=== PATIENT | male | born 1955 ===

== ENCOUNTER 2016-11-28 08:54 | Emergency (ER) | payer MEDICARE, OTHER ==
[2016-11-28 09:13] VITALS: RESP 16; TEMP 98.4
[2016-11-28] MEDS ORDERED: Apap-Butalbital-Caffeine 325-50-40mg Tab PO STA (10:01)
--- NOTE | 2016-11-28 10:03 | ED PDOC ---
Arrival/HPI - General Chief Complaint: ENT Problem Time Seen by Provider: 11/28/16 09:22 Historian: Patient - History of Present Illness Narrative History of Present Illness (Text): 11/28/16 09:40 This 61 yo male is brought to this ED c/o sore throat and KHAN x 2 weeks. Patient denies fever, sob, cp, wheezing, abdominal pain, urinary symptoms, neck pain, neck stiffness, diplopia, dysarthria, dizziness, rash, recent travel, or sick contact. Time/Duration: Other (2 weeks) Context: Home Past Medical History - Provider Review Nursing Documentation Reviewed: Yes - HEENT Hx Glaucoma: Yes - Psychiatric Hx Substance Use: No Family/Social History - Physician Review Nursing Documentation Reviewed: Yes Family/Social History: No Known Family HX Smoking Status: Unknown If Ever Smoked Hx Alcohol Use: Yes Frequency of alcohol use: Socially Hx Substance Use: No Allergies/Home Meds Allergies/Adverse Reactions: Allergies No Known Allergies Allergy (Verified 11/28/16 09:13) Review of Systems - Review of Systems Constitutional: Normal. absent: Fatigue, Weight Change, Fevers, Night Sweats Eyes: Normal. absent: Vision Changes, Photophobia, Eye Pain ENT: Sore Throat. absent: Hearing Changes, Tinnitus, TMJ Pain, Voice Changes, Rhinorrhea, Epistaxis, Sinus Congestion Respiratory: Normal. absent: SOB, Cough, Wheezing Cardiovascular: Normal. absent: Chest Pain, Palpitations Gastrointestinal: Normal. absent: Abdominal Pain, Nausea, Vomiting Genitourinary Male: Normal. absent: Dysuria, Frequency, Hematuria Musculoskeletal: Normal. absent: Back Pain, Neck Pain, Joint Swelling, Myalgias Skin: Normal. absent: Rash Neurological: Headache. absent: Dizziness, Focal Weakness, Gait Changes, Speech Changes, Facial Droop Endocrine: Normal Hemo/Lymphatic: Normal Psychiatric: Normal Physical Exam Vital Signs Temp Pulse Resp BP Pulse Ox 11/28/16 09:10 98.4 F 78 16 136/86 98 Temperature: Afebrile Blood Pressure: Normal Pulse: Regular Respiratory Rate: Normal Appearance: Positive for: Well-Appearing, Non-Toxic, Comfortable Pain Distress: None Mental Status: Positive for: Alert and Oriented X 3 - Systems Exam Head: Present: Atraumatic, Normocephalic Pupils: Present: PERRL Extroacular Muscles: Present: EOMI Conjunctiva: Present: Normal Mouth: Present: Moist Mucous Membranes Pharnyx: Present: ERYTHEMA. No: EXUDATE, TONSILS ENLARGED, Peritonsilar Swelling, Uvular Deviation, Muffled/Hoarse Voice, Strider, Soft Palate/Uvular Edema Nose (External): Present: Atraumatic Nose (Internal): Present: Normal Inspection Neck: Present: Normal Range of Motion, Trachea Midline. No: Meningeal Signs, MIDLINE TENDERNESS, Paraspinal Tenderness, Lymphadenopathy Respiratory/Chest: Present: Clear to Auscultation, Good Air Exchange. No: Respiratory Distress, Accessory Muscle Use, Wheezes, Retracting, Rhonchi Cardiovascular: Present: Regular Rate and Rhythm, Normal S1, S2. No: Murmurs Abdomen: Present: Normal Bowel Sounds. No: Tenderness, Distention, Peritoneal Signs, Rebound, Guarding Back: Present: Normal Inspection. No: CVA Tenderness Upper Extremity: Present: Normal Inspection, Normal ROM, NORMAL PULSES, Neurovascularly Intact, Capillary Refill < 2s. No: Cyanosis, Edema Lower Extremity: Present: Normal Inspection. No: Edema Neurological: Present: GCS=15, CN II-XII Intact, Speech Normal, Motor Func Grossly Intact, Normal Sensory Function, Normal Cerebellar Funct, Gait Normal Skin: Present: Warm, Dry, Normal Color. No: Rashes Psychiatric: Present: Alert, Oriented x 3 Medical Decision Making ED Course and Treatment: 11/28/16 10:34 Patient came c/o KHAN, and sore throat x 2 weeks. Patient denies fever, diplopia , dysarthia, dizziness, sick contact, or recent travel. Denies sob, or cp. Physical exam was unremarkable except for mild pharyngitis. Patient has not neuro focal deficits. Lungs CTA b/l. No scalp or facial rash. Patient KHAN was treated with Fioricet and Motrin with improvement of symptoms. Patient requested ABX, and PMD referral. Re-evaluation Time: 10:36 Reassessment Condition: Re-examined, Improved - Medication Orders Current Medication Orders: Discontinued Medications Acetaminophen/Butalbital/Caffeine (Fioricet) 1 tab PO STAT STA Stop: 11/28/16 10:02 Last Admin: 11/28/16 10:12 Dose: 1 tab Ibuprofen (Motrin Tab) 400 mg PO STAT STA Stop: 11/28/16 10:03 Last Admin: 11/28/16 10:13 Dose: 400 mg Disposition/Present on Arrival - Present on Arrival Any Indicators Present on Arrival: No History of DVT/PE: No History of Uncontrolled Diabetes: No Urinary Catheter: No History of Decub. Ulcer: No History Surgical Site Infection Following: None - Disposition Have Diagnosis and Disposition been Completed?: Yes Diagnosis: Pharyngitis, Headache Disposition: HOME/ ROUTINE Disposition Time: 10:38 Patient Plan: Discharge Patient Problems: Current Active Problems Problem Status Onset Headache Acute Pharyngitis Acute Condition: GOOD Discharge Instructions (ExitCare): General Headache (ED), Pharyngitis (ED) Additional Instructions: Call private doctor for follow up visit in 1-2 days. Take medication as instructed. Return to emergency if symptoms worsen. Prescriptions: Amoxicillin [Amoxil 500 mg Cap] 500 mg PO TID #21 cap Famotidine [Pepcid] 40 mg PO DAILY #12 tablet Ibuprofen [Motrin] 600 mg PO Q8 PRN #12 tab PRN Reason: Pain, Severe (8-10) Referrals: Durga Neslon [Primary Care Provider] - Follow up with primary Theresa Bustamante MD [Staff Provider] - Follow up with primary
[2016-11-28 11:18] VITALS: BP 132/80; PULSE 59; O2SAT 99
== END 2016-11-28 11:15 | disposition home or self-care (01) ==
LOC: ED 08:54 → MERGE 08:54 → ED 11:15
DX: J02.9 Acute pharyngitis, unspecified (principal); R51 Headache